=== PATIENT | male | born 1950 | race Caucasian/White ===

== ENCOUNTER 2016-11-11 08:32 | Day surgery (SDC) | payer BC ==
[~2016-11-11 08:32] MED LIST: EPINEPHrine 1:1000 1 MG/ML SDV ONE; Lidocaine 1% 2 ML ONE; Lidocaine 1%/Sod Bicarbonate in NS 8.4% 1 ML Syringe PRN; Midazolam 1 MG/ML 2 ML SDV ONE; Ropivacaine 0.5% 5 MG/ML 30 ML SDV ONE; Sodium Chloride 0.9% 10 ML Syringe FLUSH PRN; fentaNYL 100 MCG/2 ML SDV ONE
[2016-11-11] MEDS: Lactated Ringers 1,000 ML IV SCH ×2 (08:45→12:35)
--- NOTE | 2016-11-11 08:55 | PCM.PREANE ---
Preanesthetic Assessment - Anesthesia/Transfusion/Family Hx Anesthesia History: Prior Anesthesia Without Reaction Family History of Anesthesia Reaction: No Transfusion History: No Prior Transfusion(s) - Review of Systems General: No Symptoms Pulmonary: No Symptoms Cardiovascular: No Symptoms Gastrointestinal: No symptoms Neurological: No Symptoms Other: Reports: None - Physical Assessment NPO Status Date: 11/10/16 NPO Status Time: 00:00 Pulse: 83 O2 Sat by Pulse Oximetry: 98 Respiratory Rate: 16 Blood Pressure: 146/73 Temperature: 37.1 C Height: 1.85 m Weight: 76.7 kg ASA Class: 2 Mental Status: Alert & Oriented x3 Airway Class: Mallampati = 1 Dentition: Reports: Normal Dentition Thyro-Mental Finger Breadths: 3 Mouth Opening Finger Breadths: 3 ROM/Head Extension: Full Lungs: Clear to auscultation, Normal respiratory effort Cardiovascular: Regular Rate, Regular Rhythm, No Murmurs - Lab Values: Laboratory Last Values MRSA (PCR) Negative 10/29/16 10:41 - Allergies Allergies/Adverse Reactions: Allergies Allergy/AdvReac Type Severity Reaction Status Date / Time No Known Allergies Allergy Verified 11/10/16 14:52 - Blood Blood Available: No Product(s) Available: None - Anesthesia Plan Pre-Op Medication Ordered: None - Acknowledgements Anesthesia Type Planned: General Anesthesia, Regional Block (intrerscalene block for post-op pain control) Pt an Appropriate Candidate for the Planned Anesthesia: Yes Alternatives and Risks of Anesthesia Discussed w Pt/Guardian: Yes Pt/Guardian Understands and Agrees with Anesthesia Plan: Yes PreAnesthesia Questionnaire HEENT History: Reports: Impaired Vision, Other (See Below) Other HEENT History: wears glasses Cardiovascular History: Reports: None Respiratory History: Reports: None Genitourinary History: Reports: None 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 Musculoskeletal History: Reports: Back Pain, Chronic Neurological History: Reports: None Psychiatric History: Reports: None Endocrine/Metabolic History: Reports: None Hematologic History: Reports: None Immunologic History: Reports: None Oncologic (Cancer) History: Reports: None Dermatologic History: Reports: None - Past Surgical History Head Surgeries/Procedures: Reports: None GI Surgical History: Reports: Colonoscopy Musculoskeletal Surgical History: Reports: Arthroscopic Procedure, Other (See Below) Other Musculoskeletal Surgeries/Procedures:: R shoulder arthroscopy x 2 and L shoulder arthroscopy x 2 - SUBSTANCE USE Smoking Status *Q: Never Smoker Tobacco Use Within Last Twelve Months: No Second Hand Smoke Exposure: No Days Per Week of Alcohol Use: 1 Number of Drinks Per Day: 0 Total Drinks Per Week: 0 Recreational Drug Use History: No - HOME MEDS Home Medications: Home Meds Aspirin 81 mg PO DAILY 11/10/16 [History] Calcium Citrate/Vitamin D2 [Calcium with Vit D Tablet] 2 tab PO DAILY 11/10/16 [ History] Gluc 2KCl/Chondr/Hao Hy/Hy Ac [Glucosamine & Chondroitin Cap] 1 tab PO DAILY [History] Iron,Carbonyl/Ascorbic Acid [Fe C Tablet] 1 tab PO DAILY 11/10/16 [History] Multivitamin [Multivitamins] 1 tab PO DAILY 11/10/16 [History] [place]-3S/DHA/Epa/Fish Oil [[place]-3 Fish Oil 1,000 mg Sfgl] 1 cap PO DAILY [History] Cyclobenzaprine [Flexeril] 10 mg PO Q8H PRN #40 tablet 11/11/16 [Rx] Hydrocodone/Acetaminophen [[place] 5-325 Tablet] 1 - 2 each PO Q6H PRN #40 tablet 11/11/16 [Rx] - CURRENT (IN HOUSE) MEDS Current Meds: Current Medications Lactated Ringer's (Ringers, Lactated) 1,000 mls @ 125 mls/hr IV ASDIRECTED TAMIKA Stop: 11/11/16 23:00 Lidocaine/Sodium Bicarbonate (Buffered Lidocaine 1% In Ns 8.4%) 0.25 ml .XX ONETIME PRN PRN Reason: Prior to IV Start Stop: 11/11/16 18:00 Sodium Chloride (Saline Flush) 10 ml FLUSH ASDIRECTED PRN PRN Reason: Keep Vein Open Stop: 11/11/16 18:00 Discontinued Medications Epinephrine HCl (Adrenalin 1:1000) Confirm Administered Dose 1 mg .ROUTE .STK- MED ONE Stop: 11/11/16 07:21 Fentanyl (Sublimaze) Confirm Administered Dose 100 mcg .ROUTE .STK-MED ONE Stop: 11/11/16 07:30 Lidocaine HCl (Xylocaine-Mpf 1%) Confirm Administered Dose 2 mls @ as directed .ROUTE .STK-MED ONE Stop: 11/11/16 07:30 Midazolam HCl (Versed 1 Mg/Ml) Confirm Administered Dose 2 mg .ROUTE .STK-MED ONE Stop: 11/11/16 07:30 Ropivacaine (Naropin 0.5%) Confirm Administered Dose 30 ml .ROUTE .ST-MED ONE Stop: 11/11/16 07:21
[2016-11-11] MEDS ORDERED: fentaNYL 100 MCG/2 ML SDV ONE (09:46)
[2016-11-11] MEDS ORDERED: Propofol 200 MG/20 ML SDV ONE (09:46)
[2016-11-11] MEDS ORDERED: Midazolam 1 MG/ML 2 ML SDV ONE (09:47)
[2016-11-11] MEDS ORDERED: ceFAZolin 1 GM Vial ONE (09:48)
[2016-11-11] MEDS ORDERED: Ondansetron 4 MG/2 ML SDV ONE ×2 (09:48→11:50)
[2016-11-11] MEDS ORDERED: Rocuronium 50 MG/5 ML Vial ONE (09:48)
[2016-11-11] MEDS ORDERED: Lidocaine 1% 4 ML ONE (09:48)
--- NOTE | 2016-11-11 11:03 | PCM.SN ---
- Free Text/Narrative Note: Note: 11/11/2014 1003 158/73 80 100% 7 Surgeon and pt request post-op pain control for right shoulder surgery risk of block failure, facial numbness, site infection, and chronic pain discussed with pt and agreed to proceed. All standard monitors est. EKG, BP, Pulse Ox, 2ml O2 and 2ml versed, 2ml fentanyl pre-op dx. right shoulder pain post-op dx right shoulder arthroscopy pt for interscalene block placement all standard monitors est. pt ID time out performed IV sedation 2ml versed, 2ml fentanyl, 2L NC O2, sterile prep and drape of right neck and shoulder U/S placed with visualization of brachial plexus from clavicle to cricoid local skin infiltration 22ga. Stimplex A insulated needle visualized at brachial plexus nerve stimulator at .1 Ritika Amps stop at .3 Ritika Amps with good bicep twitch with 1ml NaCl and lose of twitch neg aspirations every 5ml of 0.5% ropivacaine and 1:200,000 epi total of 30ml injected all done with U/S guidance needle withdrawn no complications noted pt tolerated procedure well block settling in start procedure at 0900 end procedure at 0923 149/73 75 99% 16
[2016-11-11] MEDS: EPINEPHrine 1:1000 1 MG/ML 30 ML MDV ONE ×2 (11:16→11:35)
[2016-11-11] MEDS ORDERED: Lactated Ringers 1,000 ML ONE (11:16)
[2016-11-11] MEDS ORDERED: Dexamethasone 4 MG/ML 5 ML MDV ONE (11:25)
[2016-11-11] MEDS: Bupivacaine 0.25% 30 ML SDV ONE ×2 (11:32→11:45)
[2016-11-11] MEDS ORDERED: Neostigmine Methylsulfate 1 MG/ML 5 ML Syringe ONE (12:04)
--- NOTE | 2016-11-11 12:13 | PCM.POSTAN ---
POST ANESTHESIA ASSESSMENT - MENTAL STATUS Mental Status: other (drowsy ) - VITAL SIGNS Pulse Rate: 77 SaO2: 100 Resp Rate: 16 Blood Pressure: 147/79 Temperature: 36.1 C - RESPIRATORY Respiratory Status: respiratory rate WNL, airway patent, O2 saturation stable - CARDIOVASCULAR CV Status: pulse rate WNL, blood pressure stable - GASTROINTESTINAL GI Status: no symptoms - PAIN Pain Score: 0 - POST OP HYDRATION Hydration Status: adequate & stable
[2016-11-11] MEDS ORDERED: Ondansetron 4 MG/2 ML SDV IVPUSH PRN (12:14)
[2016-11-11] MEDS ORDERED: diphenhydrAMINE 50 MG/ML SDV IVPUSH PRN (12:14)
[2016-11-11] MEDS ORDERED: fentaNYL 100 MCG/2 ML SDV IVPUSH PRN (12:14)
[2016-11-11] MEDS ORDERED: Meperidine PF 50 MG/ML Syringe IVPUSH PRN (13:15)
[2016-11-11 13:21] VITALS: BP 148/78
--- NOTE | 2016-11-11 14:55 | PCM48HPAN ---
Post Anesthesia Note - EVALUATION WITHIN 48HRS OF ANESTHETIC Vital Signs in Normal Range: Yes Patient Participated in Evaluation: No (received report from RN) Respiratory Function Stable: Yes Airway Patent: Yes Cardiovascular Function Stable: Yes Hydration Status Stable: Yes Pain Control Satisfactory: Yes Nausea and Vomiting Control Satisfactory: Yes Mental Status Recovered: Yes ( )
--- NOTE | 2016-11-15 21:50 | PCM.OPNOTE ---
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
--- NOTE | 2016-11-16 10:22 | OR ---
DATE OF OPERATION: 11/11/2016 SURGEON: Lacho Senior MD OPERATIVE PROCEDURE: Right shoulder video arthroscopy with subacromial decompression and distal clavicle excision. PREOPERATIVE DIAGNOSIS: Right shoulder impingement with AC joint arthrosis. POSTOPERATIVE DIAGNOSIS: Right shoulder impingement with AC joint arthrosis. ANESTHESIA: Technique, general endotracheal intubation with regional block. ANESTHESIA PROVIDER: Yeni Lemus CRNA BOOK AUTHOR: Leela Cedillo PA-C. ESTIMATED BLOOD LOSS: 5 mL. COMPLICATIONS: None. CONDITION: Stable. DESCRIPTION OF PROCEDURE: The patient was identified in the preop holding area. Proper site was marked and identified by the surgeon. The patient was taken back to the operating theater, where after adequate anesthesia, the patient was placed in the lazy left lateral decubitus position. A wedge was placed posteriorly. All bony prominences were well padded. Right shoulder was then sterilely prepped and draped in the usual sterile fashion. OR time-out was performed. The patient received 2 g IV Ancef. At this time, a 15 pounds of traction was applied to the right upper extremity. Standard posterior portal incision was made. The scope trocar was introduced into the glenohumeral joint. At this time, a cursory examination showed no signs of chondromalacia. There was some anterior labral fraying. The biceps tendon was intact. No signs of tendinopathy. The undersurface of the rotator cuff was intact. Subscapularis was intact. At this time, the scope was removed and placed in subacromial space. A limited bursectomy was then carried out at this time and attention was turned to the acromion. A lateral portal was created with the use of acromion knots or bur. Acromioplasty was taken down to a type 1 acromion. At this time, attention was turned to the distal clavicle, the distal clavicle was visualized all the way anterior to posterior through the scope and then using full radius resector bur, I was able to resect the bone throughout the distal clavicle and AC joint. At this point, excess saline was irrigated through the shoulder, the rotator cuff was found to be intact with no signs of tear, 3-0 nylon simple suture was used for closure of the skin. The patient was placed in a pillow sling and sent to PACU in stable condition. MMODAL /[id number] MTDD
== END 2016-11-11 13:48 | disposition home or self-care (01) ==
LOC: JD.SDS 08:32
PROVIDERS: ATTEND Orthopaedic Surgery
PROC: 0RNJ4ZZ Release Right Shoulder Joint, Percutaneous Endoscopic Approach (ICD-10-PCS; principal; 2016-11-11)
PROC: 0PB94ZZ Excision of Right Clavicle, Percutaneous Endoscopic Approach (ICD-10-PCS; 2016-11-11)
DX: M75.41 Impingement syndrome of right shoulder (principal); M19.011 Primary osteoarthritis, right shoulder; G89.29 Other chronic pain; M54.9 Dorsalgia, unspecified; Z79.82 Long term (current) use of aspirin; Z79.899 Other long term (current) drug therapy; Z98.890 Other specified postprocedural states
CPT/HCPCS: 29824; 29826; 87641; J0171; J0690; J1100; J2250; J2405; J2710; J2795; J3010; J7120; 01630; 64415; J2704; J3490

== ENCOUNTER 2016-11-11 20:27 | Emergency (ER) | payer BC ==
[2016-11-11 20:40] VITALS: BP 150/86
--- NOTE | 2016-11-11 21:21 | EDM.PDOC ---
ED HPI GENERAL MEDICAL PROBLEM - General Chief Complaint: Upper Extremity Injury/Pain Stated Complaint: Hand swelling Time Seen by Provider: 11/11/16 21:00 Source of Information: Reports: Patient, RN Notes Reviewed History Limitations: Reports: No Limitations - History of Present Illness INITIAL COMMENTS - FREE TEXT/NARRATIVE: 66 year old male presents to the ED with concerns of right hand swelling, redness, and warmth. He had a right shoulder arthroscopy today by Dr. Senior and had a nerve block done. He is start to get sensation back in the arm but still has no pain. Over the past couple hours he has noticed increasing redness and swelling to his hand. He also says his elbow is cool to the touch. No fever or chills. He has his post-operative bandage on his shoulder. - Related Data Allergies Allergy/AdvReac Type Severity Reaction Status Date / Time No Known Allergies Allergy Verified 11/11/16 20:41 Home Meds: Home Meds Aspirin 81 mg PO DAILY 11/10/16 [History] Calcium Citrate/Vitamin D2 [Calcium with Vit D Tablet] 2 tab PO DAILY 11/10/16 [ History] Gluc 2KCl/Chondr/Hao Hy/Hy Ac [Glucosamine & Chondroitin Cap] 1 tab PO DAILY [History] Iron,Carbonyl/Ascorbic Acid [Fe C Tablet] 1 tab PO DAILY 11/10/16 [History] Multivitamin [Multivitamins] 1 tab PO DAILY 11/10/16 [History] [place]-3S/DHA/Epa/Fish Oil [[place]-3 Fish Oil 1,000 mg Sfgl] 1 cap PO DAILY [History] Cyclobenzaprine [Flexeril] 10 mg PO Q8H PRN #40 tablet 11/11/16 [Rx] Hydrocodone/Acetaminophen [[place] 5-325 Tablet] 1 - 2 each PO Q6H PRN #40 tablet 11/11/16 [Rx] Past Medical History HEENT History: Reports: Impaired Vision, Other (See Below) Other HEENT History: wears glasses Cardiovascular History: Reports: None Respiratory History: Reports: None Genitourinary History: Reports: None 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 Musculoskeletal History: Reports: Back Pain, Chronic Neurological History: Reports: None Psychiatric History: Reports: None Endocrine/Metabolic History: Reports: None Hematologic History: Reports: None Immunologic History: Reports: None Oncologic (Cancer) History: Reports: None Dermatologic History: Reports: None - Past Surgical History Head Surgeries/Procedures: Reports: None GI Surgical History: Reports: Colonoscopy Musculoskeletal Surgical History: Reports: Arthroscopic Procedure, Other (See Below) Other Musculoskeletal Surgeries/Procedures:: R shoulder arthroscopy x 2 and L shoulder arthroscopy x 2 Social & Family History - Tobacco Use Smoking Status *Q: Never Smoker Second Hand Smoke Exposure: No - Caffeine Use Caffeine Use: Reports: Coffee - Alcohol Use Days Per Week of Alcohol Use: 1 Number of Drinks Per Day: 0 Total Drinks Per Week: 0 - Recreational Drug Use Recreational Drug Use: No Drug Use in Last 12 Months: No Review of Systems - Review of Systems Review Of Systems: See Below Constitutional: Reports: No Symptoms. Denies: Chills, Fever Musculoskeletal: Reports: Other (right arm/hand swelling and redness) Skin: Reports: Erythema ED EXAM, GENERAL - Physical Exam Exam: See Below Exam Limited By: No Limitations General Appearance: Alert, WD/WN, No Apparent Distress Extremities: Normal Capillary Refill, Increased Warmth (right hand), Redness ( right hand), Other (Bandage in place to right shoulder is dry and intact. His right elbow exam is normal. His right hand is warm to touch, is swollen and red. CMS is good. ). No: Mottled, Pallor Course - Vital Signs Last Recorded V/S: Last Vital Signs Temp 97.7 F 11/11/16 20:36 Pulse 79 11/11/16 20:36 Resp 20 11/11/16 20:36 BP 150/86 H 11/11/16 20:36 Pulse Ox 100 11/11/16 20:36 - Re-Assessments/Exams Free Text/Narrative Re-Assessment/Exam: Discussed with Dr. Mendez who agrees that the symptoms are related to surgery and the nerve block. Patient was educated on supportive care. Instructed to apply a cool moist compress. Instructed not to apply ice directly to the hand since he still does not have full sensation. Discharge instructions as documented. Departure - Departure Time of Disposition: 21:20 Disposition: Home, Self-Care 01 Condition: good Clinical Impression: Arm edema - Discharge Information Forms: ED Department Discharge Additional Instructions: Continue with your post-op care as instructed by Dr. Senior Cold compresses to right hand as tolerated Return to ER with any additional concerns or worsening of symptoms
== END 2016-11-11 21:39 | disposition home or self-care (01) ==
LOC: JD.ED 20:27
DX: R60.0 Localized edema (principal); Z79.82 Long term (current) use of aspirin; Z79.899 Other long term (current) drug therapy; Z98.890 Other specified postprocedural states
CPT/HCPCS: 99282; 99283

== ENCOUNTER 2019-09-12 14:37 | Emergency (ER) | payer MEDICARE, OTHER ==
[2019-09-12 14:50] VITALS: BP 181/89; PULSE 85
[2019-09-12] MEDS ORDERED: Sodium Chloride 0.9% 10 ML Syringe FLUSH PRN (15:10)
[2019-09-12] MEDS ORDERED: Aspirin 81 MG Tab.Chew PO ONE (15:10)
--- NOTE | 2019-09-12 15:25 | CR ---
Chest: Portable view of the chest was obtained. Comparison: Prior chest x-ray of 05/02/19. Heart size and mediastinum are normal. Lungs are clear. Old fractures are seen within the right ribs which show partial but incomplete healed. No acute bony abnormality is otherwise seen. Impression: 1. Partially but incompletely healed right-sided rib fractures. 2. Nothing acute is otherwise seen on portable chest x-ray. Diagnostic code #3 This report was dictated in MDT
--- NOTE | 2019-09-12 16:01 | EDM.PDOC ---
ED HPI GENERAL MEDICAL PROBLEM - General Chief Complaint: Chest Pain Stated Complaint: CHEST PAIN Time Seen by Provider: 09/12/19 14:52 Source of Information: Reports: Patient, RN Notes Reviewed - History of Present Illness INITIAL COMMENTS - FREE TEXT/NARRATIVE: 69 year old male had some L sided chest pain this past morning and than started having some mild R sided chest discomfort this afternoon. No hx of known CAD. No hx Htn or diabetes. He does not smoke. Pos. family hx CAD. He fell out of a tree about 6 months ago cutting branches, suffered 4 broken ribs, R pneumo, with good recovery. Left Chest Pain Score (Numeric/FACES): 2 - Related Data Allergies Allergy/AdvReac Type Severity Reaction Status Date / Time No Known Allergies Allergy Verified 09/12/19 14:50 Home Meds: Home Meds atorvaSTATin [Lipitor] 10 mg PO BEDTIME 03/13/19 [History] Aspirin [Halfprin] 81 mg PO DAILY tab.ec 03/16/19 [Rx] Levothyroxine 25 mcg PO ACBREAKFAST tablet 03/16/19 [Rx] Past Medical History HEENT History: Reports: Impaired Vision, Other (See Below) Other HEENT History: wears glasses Cardiovascular History: Reports: High Cholesterol Other Cardiovascular History: statin Respiratory History: Reports: None Gastrointestinal History: Reports: Hemorrhoids Genitourinary History: Reports: None 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 Musculoskeletal History: Reports: Back Pain, Chronic Neurological History: Reports: None Psychiatric History: Reports: None Endocrine/Metabolic History: Reports: None Hematologic History: Reports: None Immunologic History: Reports: None Oncologic (Cancer) History: Reports: None Dermatologic History: Reports: None - Past Surgical History Head Surgeries/Procedures: Reports: None GI Surgical History: Reports: Colonoscopy Musculoskeletal Surgical History: Reports: Arthroscopic Procedure, Other (See Below) Other Musculoskeletal Surgeries/Procedures:: R shoulder arthroscopy x 2 and L shoulder arthroscopy x 2 Social & Family History - Family History Family Medical History: Noncontributory - Tobacco Use Smoking Status *Q: Never Smoker - Caffeine Use Caffeine Use: Reports: Coffee Other Caffeine Use: 3 cups per day- not every day. 5 hour energy occasional ED ROS GENERAL - Review of Systems Review Of Systems: See Below Constitutional: Denies: Fever, Chills, Diaphoresis HEENT: Reports: No Symptoms Respiratory: Denies: Shortness of Breath, Pleuritic Chest Pain, Cough GI/Abdominal: Denies: Abdominal Pain, Nausea, Vomiting Musculoskeletal: Denies: Shoulder Pain, Arm Pain, Back Pain Skin: Reports: No Symptoms Neurological: Reports: No Symptoms ED EXAM, GENERAL - Physical Exam Exam: See Below Exam Limited By: No Limitations General Appearance: Alert, No Apparent Distress Eye Exam: Bilateral Eye: PERRL Head: Atraumatic. No: Facial Swelling Neck: Supple, Full Range of Motion Respiratory/Chest: No Respiratory Distress, Lungs Clear, Normal Breath Sounds, Chest Non-Tender Cardiovascular: Regular Rate, Rhythm GI/Abdominal: Soft, Non-Tender Back Exam: No: CVA Tenderness (L), CVA Tenderness (R) Extremities: Normal Inspection. No: Pedal Edema, Leg Pain, Increased Warmth, Redness Neurological: Alert, Oriented, No Motor/Sensory Deficits Skin Exam: Warm, Dry, Normal Color EKG INTERPRETATION EKG Date: 09/12/19 Rhythm: NSR [place]: Normal P-Wave: Present QRS: Normal ST-T: Normal QT: Normal Course - Vital Signs Last Recorded V/S: Last Vital Signs Temp 99.6 F 09/12/19 14:44 Pulse 85 09/12/19 14:44 Resp 20 09/12/19 14:44 BP 181/89 H 09/12/19 14:44 Pulse Ox 99 09/12/19 14:44 - Orders/Labs/Meds Orders: Active Orders 24 hr Category Date Time Status EKG 12 Lead [EKG Documentation Completion] [RC] STAT Care 09/12/19 15:09 Active Peripheral IV Care [RC] . DIRECTED Care 09/12/19 15:10 Active Sodium Chloride 0.9% [Saline Flush] Med 09/12/19 15:10 Active 10 ml FLUSH ASDIRECTED PRN Peripheral IV Insertion Adult [OM.PC] Stat Oth 09/12/19 15:10 Ordered Medication Orders Sodium Chloride (Saline Flush) 10 ml FLUSH ASDIRECTED PRN PRN Reason: Keep Vein Open Last Admin: 09/12/19 15:16 Dose: 10 ml Labs: Laboratory Tests 09/12/19 09/12/19 09/12/19 Range/Units 14:48 14:48 17:03 WBC 4.52 (4.23-9.07) K/mm3 RBC 4.15 L (4.63-6.08) M/mm3 Hgb 14.7 (13.7-17.5) gm/dl Hct 42.3 (40.1-51.0) % MCV 101.9 H D (79.0-92.2) fl MCH 35.4 H (25.7-32.2) pg MCHC 34.8 (32.2-35.5) g/dl RDW Std Deviation 43.4 (35.1-43.9) fL Plt Count 221 (163-337) K/mm3 MPV 8.9 L (9.4-12.3) fl Neut % (Auto) 60.6 (34.0-67.9) % Lymph % (Auto) 27.7 (21.8-53.1) % [place] % (Auto) 8.8 (5.3-12.2) % Eos % (Auto) 2.7 (0.8-7.0) Baso % (Auto) 0.2 (0.1-1.2) % Neut # (Auto) 2.74 (1.78-5.38) K/mm3 Lymph # (Auto) 1.25 L (1.32-3.57) K/mm3 [place] # (Auto) 0.40 (0.30-0.82) K/mm3 Eos # (Auto) 0.12 (0.04-0.54) K/mm3 Baso # (Auto) 0.01 (0.01-0.08) K/mm3 Troponin I < 0.017 < 0.017 (0.00-0.056) ng/mL Meds: Medications Generic Name Dose Route Start Last Admin Trade Name Freq PRN Reason Stop Dose Admin Sodium Chloride 10 ml 09/12/19 15:10 09/12/19 15:16 Saline Flush FLUSH 10 ml ASDIRECTED PRN Administration Keep Vein Open Discontinued Medications Generic Name Dose Route Start Last Admin Trade Name Freq PRN Reason Stop Dose Admin Aspirin 324 mg 09/12/19 15:10 09/12/19 15:16 Aspirin PO 09/12/19 15:11 324 mg ONETIME ONE Administration - Re-Assessments/Exams Free Text/Narrative Re-Assessment/Exam: 09/12/19 18:55 CXR nl, EKG does not show acute changes, repeat trop nl. Has been resting comfortably while here in the ED. Discharge instr. as documented. Departure - Departure Time of Disposition: 18:26 Disposition: Home, Self-Care 01 Condition: Fair Clinical Impression: Atypical chest pain Instructions: Nonspecific Chest Pain, Adult, [id number] Referrals: Lupillo Gamble MD [Primary Care Provider] - Forms: ED Department Discharge Additional Instructions: Your heart and lungs have checked out well today. You may take tylenol of ibuprofen if needed. Continue baby aspirin daily and any other current medications. Follow up clinic if not much better within 2 to 3 days. Return to ED as needed if symptoms worsening in any way. Sepsis Event Note - Evaluation Sepsis Screening Result: No Definite Risk - Focused Exam Vital Signs: Vital Signs Temp Pulse Resp BP Pulse Ox 09/12/19 14:44 99.6 F 85 20 181/89 H 99 Date Exam was Performed: 09/12/19 Time Exam was Performed: 18:54 - My Orders Last 24 Hours: My Active Orders 09/12/19 15:09 EKG 12 Lead [EKG Documentation Completion] [RC] STAT 09/12/19 15:10 Peripheral IV Care [RC] . DIRECTED Sodium Chloride 0.9% [Saline Flush] 10 ml FLUSH ASDIRECTED PRN Peripheral IV Insertion Adult [OM.PC] Stat - Assessment/Plan Last 24 Hours: My Active Orders 09/12/19 15:09 EKG 12 Lead [EKG Documentation Completion] [RC] STAT 09/12/19 15:10 Peripheral IV Care [RC] . DIRECTED Sodium Chloride 0.9% [Saline Flush] 10 ml FLUSH ASDIRECTED PRN Peripheral IV Insertion Adult [OM.PC] Stat
== END 2019-09-12 18:48 | disposition home or self-care (01) ==
LOC: JD.ED 14:37
DX: R07.89 Other chest pain (principal); E78.00 Pure hypercholesterolemia, unspecified; Z79.82 Long term (current) use of aspirin; Z79.899 Other long term (current) drug therapy
CPT/HCPCS: 36415; 71045; 84484; 85025; 93005; 99285; A9270; 93010; 99284

== ENCOUNTER 2024-11-27 21:26 | Emergency (ER) | payer MEDICARE, OTHER ==
[2024-11-27 21:54] VITALS: BP 183/96; PULSE 81
== END 2024-11-27 22:55 | disposition home or self-care (01) ==
LOC: JD.ED 21:26
DX: S82.402A Unspecified fracture of shaft of left fibula, initial encounter for closed fracture (principal); E78.00 Pure hypercholesterolemia, unspecified; Z79.899 Other long term (current) drug therapy; W22.8XXA Striking against or struck by other objects, initial encounter
CPT/HCPCS: 73610-26-LT; 73610-LT; 99283